=== PATIENT | male | born 1960 | race Caucasian/White ===

== ENCOUNTER 2023-07-11 09:45 | Outpatient (CLI) | payer BC, SELFPAY ==
--- NOTE | 2023-07-11 10:41 | ECG_ITS ---
Measurements Intervals [place] Rate: 53 P: FL: 0 QRS: -3 QRSD: 121 T: 39 QT: 406 QTc: 383 Interpretive Statements SINUS BRADYCARDIA WITH JUNCTIONAL COMPLEXES INTRAVENTRICULAR CONDUCTION DELAY BASELINE ARTIFACT- I, II, III, AVR, AVL, AVF, V1-V6 ABNORMAL ECG NO PREVIOUS ECG AVAILABLE FOR COMPARISON Electronically Signed On 07-11-2023 11:23:47 [employer] SUPER[employer] by Milo Gutiérrez D.O.
[2023-07-11 11:10] LABS: Basophils Absolute Auto 0.1 K/mm3 (0.0-0.1); Basophils Percent Auto 1.1 % (0.2-1.2); Eosinophils Absolute Auto 0.1 K/mm3 (0-0.3); Hematocrit 44.4 % (42.0-52.0); Hemoglobin 14.6 g/dL (14.0-18.0); Immature Granulocyte Absolute 0.06 K/mm3 (0.00-0.031); Immature Granulocyte Percent A 0.8 % (0-0.5); Lymphocytes Absolute Auto 1.98 K/mm3 (0.9-3.2); Mean Corpuscular HGB Conc 32.9 g/dl (32-36); Mean Corpuscular Volume 88.3 fl (80-100); Mean Platelet Volume 9.1 fl (7.4-10.4); Monocytes Absolute Auto 0.7 K/mm3 (0.1-0.6); Neutrophils Percent Auto 63.1 % (45.5-73.1); Platelet Count Result 342 k/mm3 (150-375); Red Blood Count 5.03 M/mm3 (4.6-6.20); Red Cell Distribution Width 14.3 % (11.5-14.5); White Blood Count 7.9 K/mm3 (4.5-10.0)
[2023-07-11 11:19] LABS: Urine Cotinine NEGATIVE
[2023-07-11 11:23] LABS: Albumin Level 4.7 g/dL (3.5-5.1); Estimated Glomerular Filt Rate > 60; Glucose 95 mg/dL (65-110); Hemoglobin A1C 5.2 % (<5.7)
== END 2023-07-11 09:46 | disposition home or self-care (01) ==
LOC: ANHSURGERY 09:52
PROVIDERS: PCP Internal Medicine; Visit Provider Orthopaedic Surgery
DX: M17.11 Unilateral primary osteoarthritis, right knee (principal); Z01.818 Encounter for other preprocedural examination
CPT/HCPCS: 80307; 82040; 82565; 82947; 83036; 85025; 86850; 86900; 86901; 87081; 93005

== ENCOUNTER 2023-07-24 00:55 | Day surgery (SDC) | payer BC, SELFPAY ==
--- NOTE | 2023-07-11 10:06 | PC.NURSE ---
PRE-OP INSTRUCTIONS, PLEASE READ CAREFULLY Report to the Outpatient Waiting Room, entrance under the green pavilion located off [facility], at time _0600_ on date _07/24/23_. Planned Procedure Time: _0730_. PACK A SMALL OVERNIGHT BAG AND LEAVE IN THE CAR ALONG WITH YOUR WALKER Time changes happen often and if your time is changed the preop area will call you the afternoon before. - You and your visitor will be asked to self-screen and do not enter if you have any COVID symptoms. - A mask is optional within the hospital at this time. -VISITING HOURS 8AM -8PM Patients may have clear liquids (water, carbonated beverages, clear teas, apple juice) until 3 hours prior to surgery with a maximum of 20 ounces. - No food from midnight until time of surgery Take the following medications with a SIP of water the morning of surgery: _LEVOTHYROXINE_ DO NOT STOP ANY OF YOUR OTHER PRESCRIPTION MEDICATIONS PRIOR TO SURGERY ?EXCEPT THE FOLLOWING Medications to discontinue _MELOXICAM PER DR. MARQUEZ'S INSTRUCTIONS, Date to take last dose - ASK @ MONDA[facility]'S APPT (07/15/23)_ Please no make-up, nail lao, hairspray, perfume, deodorant, or body powder the day of surgery. No jewelry (including any body piercings) or valuables the day of surgery, leave them at home. Please take a shower or bath the night before, or the morning of, surgery with an antibacterial soap. Wear comfortable, loose fitting clothing. - Jewelry must be removed prior to entering the operating room. Rings and piercings that are not removed may be cut off. - The hospital will not accept responsibility for valuables. - Please leave all valuables, including medications, at home the day of surgery. If you are going home after surgery, a licensed test driver must drive you home. - NO public transportation without another adult if you receive anesthesia. - We recommend that an adult stay with you for 24 hours following discharge. - We also recommend that you do not drive, make important decision, drink alcoholic beverages, or take any drugs that were not prescribed by your health care provider for at least 24 hours after your discharge time. Follow any additional instructions given to you from your surgeon. If you or anyone in your household have experienced Covid symptoms in the past week, please notify your surgeon or the nurse liaison at the phone number below for possible testing. Instructions given to _PATIENT_and asked if any additional questions and then verbalized understanding. Patient advised to call surgeon office or pre surgery nurse liaison [phone] if any additional questions.
[2023-07-11 10:23] VITALS: BP 152/90; PULSE 56; RESP 20; TEMP 36.8; O2SAT 99; BMI 26.3
--- NOTE | 2023-07-22 11:58 | PM.IMHP ---
H&P: HPI History of Present Illness Date/Time: 07/22/23 11:58 Chief Complaint: Right Knee Osteoarthritis Narrative: Patient presents knee pain right. He has had knee pain for years now and has had extensive conservative treatment. He has failed injections hyaluronic acid anti-inflammatory medication therapy etc.. He is to the point where he has a hard time getting around would like to consider knee replacement surgery. Review of Systems Review of Systems: All systems reviewed & are unremarkable except as noted in HPI and below Musculoskeletal: Musculoskeletal: Reports arthralgias and Reports joint swelling [facility] Past Medical History Medical History (Updated 06/05/23 @ 13:28 by Tawanda Camilo MD) GERD (gastroesophageal reflux disease) Hyperlipidemia Hypertension Thyroid disorder Family History Family History (Updated 06/05/23 @ 13:01 by Ivana Purcell CMA) Father Lung cancer Mother CHF (congestive heart failure) Social History Social History (Updated 06/05/23 @ 13:01 by Ivana Purcell CMA) Smoking status: Never smoker Second hand tobacco smoke exposure: No Additional smoking assessment comments: PT DENIES ALL FORMS OF TOBACCO USE Alcohol intake: current Alcohol use details: 2/MONTH Substance use: current Substance use type: marijuana Last use: 04/17 Lack of Transportation: No Lack of Food: Never True Current Housing: I Have Housing Concerned About Future Housing: No Difficulty Paying Gas/Electric Bills: No Difficulty Paying for Meds: No Currently Unemployed: No Education: Trade/Vocational Certificate Difficulty w/ Childcare or Family Care: No Living arrangements: with family Occupation/Education: occupation 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 Spiritual care concerns: No Meds Home Medications and Allergies Home Medications Medication Instructions Recorded Confirmed Type levothyroxine 112 mcg capsule 112 mcg PO DAILY 06/05/23 07/11/23 History lisinopril 10 mg tablet 10 mg PO DAILY 06/05/23 07/11/23 History meloxicam 15 mg tablet 15 mg PO DAILY 06/05/23 07/11/23 History omeprazole 40 mg capsule,delayed 40 mg PO DAILY 06/05/23 07/11/23 History release trazodone 50 mg tablet 50 mg PO QHS PRN Sleep 06/05/23 07/11/23 History betamethasone dipropionate 0.05 % See Rx Instructions .Route .COMPLEX 07/11/23 07/11/23 History topical cream pravastatin 40 mg tablet 40 mg DAILY 07/11/23 07/11/23 History Allergies Allergy/AdvReac Type Severity Reaction Status Date / Time No Known Allergies Allergy Verified 07/11/23 10:17 Exam Narrative: Examination of his knee demonstrates motion from 3 to 110? varus deformity grinding crepitus and pain with any manipulation. He walks with an antalgic gait. He has pain with any motion. Neurologically, wiggle his toes is grossly intact. Resp: Effort & Inspection: normal respiratory effort Cardio: Rate: regular rate Rhythm: regular rhythm Assessment and Plan Assessment and plan (1) Osteoarthritis of right knee: Code(s): M17.11 - Unilateral primary osteoarthritis, right knee Status: Acute Assessment and Plan: Patient presents with osteoarthritis of the right knee. He has motion of the knees from about 3 to 100? varus deformity is grinding crepitus and pain with any manipulation. He walks an antalgic gait. He has failed conservative treatment and would like to proceed with knee replacement surgery. I think that is reasonable based on his symptoms and that is the fact conservative treatment is not helping any longer. We discussed surgical options risks benefits limitations and alternatives in detail. Will proceed with total knee arthroplasty right per his request. [facility] [place], [place] H&P [facility] H&P [facility] H&P: [id number] Initial Admit Mod
--- NOTE | 2023-07-23 15:53 | WPDANESEPPF ---
Anes - Initial Pre Proc Eval Procedure: Operation Date: 07/24/23 07:30 Proposed Procedures p Right Total Knee Arthroplasty - Tawanda Camilo MD Date/Time: 07/23/23 15:53 Surgeon: Tawanda Camilo MD Pre Op Diagnosis: oa right knee Patient Data Age: 63 Gender: M Height: 1.77 m Weight: 82.7 kg Last Vital Signs Temp 36.8 C 07/11/23 10:23 Pulse 56 L 07/11/23 10:23 Resp 20 07/11/23 10:23 BP 152/90 H 07/11/23 10:23 Pulse Ox 99 07/11/23 10:23 O2 Del Method Room Air 07/11/23 10:23 Allergies Allergy/AdvReac Type Severity Reaction Status Date / Time No Known Allergies Allergy Verified 07/24/23 06:40 Home Medications Medication Instructions Recorded Confirmed Type levothyroxine 112 mcg capsule 112 mcg PO DAILY 06/05/23 07/24/23 History lisinopril 10 mg tablet 10 mg PO DAILY 06/05/23 07/24/23 History meloxicam 15 mg tablet 15 mg PO DAILY 06/05/23 07/24/23 History omeprazole 40 mg capsule,delayed 40 mg PO DAILY 06/05/23 07/24/23 History release trazodone 50 mg tablet 50 mg PO QHS PRN Sleep 06/05/23 07/24/23 History betamethasone dipropionate 0.05 % See Rx Instructions .Route .COMPLEX 07/11/23 07/11/23 History topical cream pravastatin 40 mg tablet 40 mg DAILY 07/11/23 07/24/23 History Patient hx anesthesia problems: none Family hx anesthesia problems: none Results Review: All pre-operative results and documents have been reviewed as part of the pre-operative evaluation. [facility] Past Medical History Medical History (Updated 07/23/23 @ 15:53 by Abhinav Figueroa DO) GERD (gastroesophageal reflux disease) Hyperlipidemia Hypertension ARTURO (obstructive sleep apnea) CPAP Thyroid disorder Family History Family History (Updated 06/05/23 @ 13:01 by Ivana Purcell CMA) Father Lung cancer Mother CHF (congestive heart failure) Social History Social History (Updated 06/05/23 @ 13:01 by Ivana Purcell CMA) Smoking status: Never smoker Second hand tobacco smoke exposure: No Additional smoking assessment comments: PT DENIES ALL FORMS OF TOBACCO USE Alcohol intake: current Alcohol use details: 2/MONTH Substance use: current Substance use type: marijuana Last use: 04/17 Lack of Transportation: No Lack of Food: Never True Current Housing: I Have Housing Concerned About Future Housing: No Difficulty Paying Gas/Electric Bills: No Difficulty Paying for Meds: No Currently Unemployed: No Education: Trade/Vocational Certificate Difficulty w/ Childcare or Family Care: No Living arrangements: with family Occupation/Education: occupation 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 Informed Consent: The patient's anesthetic plan and its attendant risks and benefits were discussed with the patient/family/POA. Questions were solicited and answers provided to the satisfaction of the patient/family/POA.
[2023-07-24] VITALS (13 sets, daily range): BP systolic 118–172; BP diastolic 70–107; PULSE 70–85; RESP 12–18; TEMP 36.1–36.8; O2SAT 94–100
--- NOTE | ~2023-07-24 | XR_ITS ---
EXAMINATION: [id number] DATE: 07/24/2023 09:46 INDICATION: Right knee arthroplasty. Postop. TECHNIQUE: 2 views of right knee were obtained. COMPARISON: None. FINDINGS: There is a total right knee arthroplasty with patellar resurfacing in near-anatomic alignme nt. No fracture. There is gas in the knee joint and soft tissues, consistent with recent surgery. Ant erior skin brandi are noted. IMPRESSION: 1. Total right knee arthroplasty in near-anatomic alignment. Reviewed, dictated and finalized at location A. INSTRUCTOR
[2023-07-24] MEDS: LACTATED RINGERS 1,000 ML 30 ML IV CONT ×2 (06:30→09:33)
[2023-07-24] MEDS: VANCOMYCIN 1,250 MG/NS 250 ML BAG 166.67 MG IVPB (06:34)
[2023-07-24] MEDS: ACETAMINOPHEN 500 MG TABLET 1000 MG PO (06:35)
[2023-07-24] MEDS: TRANEXAMIC ACID 1,000MG/ISO100 1,000 MG/100 ML BAG 200 MG IVPB (06:36)
--- NOTE | 2023-07-24 06:47 | WPDHPUPDATE1 ---
History and Physical Update Update Date/Time: 07/24/23 06:47 History and Physical has been reviewed, including an updated exam of the patient. There are NO changes in the patient's condition. Risks, benefits, and alternatives have been discussed and questions answered. Patient agrees to proceed with procedure.
--- NOTE | 2023-07-24 07:13 | WPDANESPNB ---
Anes - Peripheral Nerve Block Date/Time: 07/24/23 07:13 I have discussed with the patient/family/POA the placement of a peripheral nerve block for post-operative pain management, including associated risks, benefits, complications, and side effects. Alternative methods of post-operative analgesia were detailed. Questions were solicited and answers provided to the satisfaction of the patient/family/POA. Time-Out: A pre-procedural Time-Out was completed immediately before starting the procedure and confirmed: Patient Identification, Site, Procedure, Patient Position and the Availability of Requisite Equipment. Clinical Indications: Acute post-operative pain management requested by the operative surgeon. Nerve Block Insertion Note Anes-nerve block: adductor canal right Patient position: supine Skin prep: chlorhexidine Needle: 22 gauge, stimulating, insulated echogenic needle. Needle length: 80 mm Technique: ultrasound Injectate: bupivacaine 0.5% with epi 5 mcg/ml (30cc - no epi) Observations: tolerated well Complications: none Procedure start time:: 713 Procedure end time:: 717
[2023-07-24] MEDS: ceFAZolin 2 GM/D5W 50 ML 2 GM/50 ML BAG IVPB ×3 (07:25→22:13)
[2023-07-24] MEDS: GENTAMICIN BONE CEMENT REFOBACIN 1 EACH TOPICAL (08:02)
--- NOTE | 2023-07-24 09:06 | W.PM.PROC2 ---
Procedure Note - Detailed Date of Procedure 07/24/23 Pre-op Diagnosis Osteoarthritis right knee Post-op Diagnosis Same Procedure Performed RIGHT total knee arthroplasty Surgeon Tawanda Camilo MD Anesthesia General Indications Arthritis and Pain Description of Procedure The patient was brought to the operating room. General anesthetic was administered. Placed on the operating table and sterilely prepped and draped in usual manner. A longitudinal incision was made. Tourniquet inflated to 300 mmHg for a total of 64 minutes. Dissection carried down to the fascia. Medial parapatellar incision was made and the patella subluxated laterally. Patella cut from 28 to 18 mm and sized for a 37 mm button. The tibia cut perpendicular to the long axis and femur cut in 5 degrees of valgus, a 72.5 femur trialed. 75 tibia was felt to fit the best. The soft tissue balanced, hemostasis obtained. All [address], 75 tibia, 72.5 femur, 37 mm patella, and 10AS mm poly. Motion was 0-125 degrees with good stablility and flexion and extension. The wound was closed with #2 vicryl, 2-0 Vicryl and brandi. [employer] Estimated Blood Loss 200 Drains No Packing No Pathology None sent Complications No immediate complications Condition Stable Disposition PACU [facility] Billing Surgery - Charge Forward: Surgery Billing (TOTAL KNEE [id number])
[2023-07-24] MEDS: fentaNYL CITRATE INJ (*CRX) 100 MCG/2 ML VIAL 25 MCG IV PUSH ×2 (10:04→10:10)
--- NOTE | 2023-07-24 10:50 | PC.NURSE ---
This patient, Jerry Chan, was received from OR on 07/24/23 at 1050. Patient/family oriented to unit policies and routines. Report received from Gerber JOSHUA.
[2023-07-24] MEDS: SODIUM CHLORIDE 0.9% IV 1,000 ML 125 ML IV CONT (12:31)
--- NOTE | 2023-07-24 14:35 | PM.IMCN ---
Assessment and Plan Assessment and plan (1) S/P total knee arthroplasty: Qualifiers: Laterality: right Qualified Code(s): Z96.651 - Presence of right artificial knee joint Code(s): Z96.659 - Presence of unspecified artificial knee joint Status: Acute (2) GERD (gastroesophageal reflux disease): Qualifiers: Esophagitis presence: esophagitis presence not specified Qualified Code(s): K21.9 - Gastro-esophageal reflux disease without esophagitis Code(s): K21.9 - Gastro-esophageal reflux disease without esophagitis Status: Acute (3) Hyperlipidemia: Qualifiers: Hyperlipidemia type: unspecified Qualified Code(s): E78.5 - Hyperlipidemia, unspecified Code(s): E78.5 - Hyperlipidemia, unspecified Status: Acute (4) Hypertension: Qualifiers: Hypertension type: primary hypertension Qualified Code(s): I10 - Essential (primary) hypertension Code(s): I10 - Essential (primary) hypertension Status: Acute (5) Hypothyroidism: Qualifiers: Hypothyroidism type: unspecified Qualified Code(s): E03.9 - Hypothyroidism, unspecified Code(s): E03.9 - Hypothyroidism, unspecified Status: Acute Plan 1. s/p total knee, R ortho to manage, see below for general plan use IS neurovasc checks - see order for intervals SCDs resume diet: regular pain management zofran PRN for nausea monitor labs in AM - CBC and BMP resume meloxicam 2. GERD continue home omeprazole zofran prn 3. HLD continue home pravastatin 4. HTN continue lisinopril monitor 5. Hypothyroidism continue levothyroxine no symptoms concerning for alteration in TSH/T3/T4 Home Meds/Chronic Conditions - insomnia: resume home trazodone Diet: regular GI Prophylaxis: DVT Prophylaxis: SCDs, hold on pharm due to recent surgery Lines: pIV Code Status: Full Code HPI Date of Consult Consult date: 07/24/23 Requesting Physician: Tawanda Camilo MD Primary Care Provider: Ezequiel Celestin, Consult Narrative Reason for consult: Medical Managment Narrative: Jerry Chan is a 63 year old male who presented here for a right total knee arthroplasty. Patient reports that he failed daily meloxicam, steroid injections, and PT. Pain has been present in his right knee for the past 1-2 years, has been progressively worsening. Recently has locked up where he was intially able to walk on his RLE, however most recent episode was too painful to ambulate on. Opted to proceed with surgical management due to active lifestyle and active job, right total knee arthroplasty performed on 07/24 by Ton STEVENS. No immediate postop complications or complaints endorsed by patient. He reports well-controlled hypertension, no recent med changes or current SANCHEZ/vision changes/nausea. Follows with PCP for his hypothyroidism, last check within the last 6 months, and no alterations in medications. No current nausea/vomiting. A/Ox4. Review of Systems Review of Systems: All systems reviewed & are unremarkable except as noted in HPI and below PMFSH Past Medical History Medical History GERD (gastroesophageal reflux disease) Hyperlipidemia Hypertension Hypothyroidism ARTURO (obstructive sleep apnea) CPAP Surgical History Surgical History History of total knee arthroplasty R Knee - 07/24/23 Family History Family History Father Lung cancer Mother CHF (congestive heart failure) Social History Social History Smoking status: Never smoker Second hand tobacco smoke exposure: No Additional smoking assessment comments: PT DENIES ALL FORMS OF TOBACCO USE Alcohol intake: current Alcohol use details: 2/MONTH Substance use:
[2023-07-24] MEDS: HYDROcodone/acetaminophen (*CRX) 5-325 MG TABLET 2 TAB PO ×2 (16:04→22:13)
[2023-07-24] MEDS: RIVAROXABAN 10 MG TABLET PO (17:23)
[2023-07-24] MEDS: SENNA/DOCUSATE SODIUM TABLET 2 TAB PO (17:23)
--- NOTE | 2023-07-24 19:30 | PC.NURSE ---
On 07/24/23, the FOUNDER AND CHIEF TECHNICAL OFFICER, Brigette Rucker, provided care and completed [facility] documentation on this patient. I have reviewed the FOUNDER AND CHIEF TECHNICAL OFFICER's documentation and agree with the findings.
[2023-07-25 06:00] VITALS: BP 126/66; PULSE 67; RESP 18; TEMP 36.6; O2SAT 97
[2023-07-25 06:10] LABS: Basophils Absolute Auto 0.1 K/mm3 (0.0-0.1); Basophils Percent Auto 0.6 % (0.2-1.2); Eosinophils Absolute Auto 0.1 K/mm3 (0-0.3); Eosinophils Percent Auto 0.6 % (0-4.4); Hematocrit 35.3 % (42.0-52.0); Hemoglobin 11.6 g/dL (14.0-18.0); Immature Granulocyte Absolute 0.03 K/mm3 (0.00-0.031); Immature Granulocyte Percent A 0.4 % (0-0.5); Lymphocytes Absolute Auto 1.13 K/mm3 (0.9-3.2); Lymphocytes Percent Auto 13.7 % (18.3-44.2); Mean Corpuscular HGB Conc 32.9 g/dl (32-36); Mean Corpuscular Hemoglobin 29.7 pg (26-34); Mean Corpuscular Volume 90.3 fl (80-100); Mean Platelet Volume 9.2 fl (7.4-10.4); Monocytes Absolute Auto 1.3 K/mm3 (0.1-0.6); Monocytes Percent Auto 15.5 % (2.6-8.5); Neutrophils Absolute Auto 5.7 K/mm3 (1.3-6.7); Neutrophils Percent Auto 69.2 % (45.5-73.1); Platelet Count Result 227 k/mm3 (150-375); Red Blood Count 3.91 M/mm3 (4.6-6.20); Red Cell Distribution Width 14.6 % (11.5-14.5); White Blood Count 8.2 K/mm3 (4.5-10.0)
[2023-07-25 06:14] LABS: Anion Gap 8 mmol/L (8-16); Blood Urea Nitrogen 24 mg/dL (9-20); Calcium 8.5 mg/dL (8.4-10.2); Carbon Dioxide 22 mmol/L (22-30); Chloride 104 mmol/L (98-107); Estimated CRCL calculation 56 ml/min; Estimated Glomerular Filt Rate > 60; Glucose 116 mg/dL (65-110); Potassium 3.8 mmol/L (3.4-5.0); Sodium 134 mmol/L (137-145)
[2023-07-25] MEDS: HYDROcodone/acetaminophen (*CRX) 5-325 MG TABLET 2 TAB PO (06:24)
[2023-07-25] MEDS: LEVOTHYROXINE SODIUM 112 MCG TABLET PO (06:25)
[2023-07-25] MEDS: ceFAZolin 2 GM/D5W 50 ML 2 GM/50 ML BAG IVPB (06:26)
[2023-07-25] MEDS: MELOXICAM 7.5 MG TABLET 15 MG PO (08:20)
[2023-07-25] MEDS: PRAVASTATIN SODIUM 20 MG TABLET 40 MG PO (08:21)
[2023-07-25] MEDS: polyethylene glycoL 3350 17 GM POWD.PACK PO (08:21)
[2023-07-25] MEDS: PANTOPRAZOLE 40 MG TABLET PO (08:21)
[2023-07-25] MEDS: SENNA/DOCUSATE SODIUM TABLET 2 TAB PO (08:21)
[2023-07-25] MEDS: lisinopriL 10 MG TABLET PO (08:21)
--- NOTE | 2023-07-25 11:50 | PM.PNORT ---
Progress Note: A&P Assessment and Plan (1) S/P total knee arthroplasty: Qualifiers: Laterality: right Qualified Code(s): Z96.651 - Presence of right artificial knee joint Code(s): Z96.659 - Presence of unspecified artificial knee joint Status: Acute Assessment and Plan: Patient is status post total knee arthroplasty pain is resolving is doing well. Lawrence and Xarelto loss was couple of days of antibiotics. I will see him back in 2 weeks for follow-up for sutures out. If he has any changes or problems he will call changes dressing before he goes. Subjective Subjective Date/Time Seen: 07/25/23 11:50 Principal diagnosis: Right Total Knee Interval history: Arthroplasty right. Pain is resolving doing well walking. Exam Narrative: On exam he has got motion he has the 5? he is stable incision is clean neurologically he is intact. He is up walking a walker. Objective Data Vital Signs Vital Signs: Vital Signs - 24 hr 07/24/23 12:45 07/24/23 13:43 07/24/23 16:12 Temperature 97.9 F Pulse Rate 85 Respiratory Rate 16 Blood Pressure 157/82 H Pulse Oximetry 94 97 Oxygen Delivery Room Air Room Air 07/24/23 15:10 07/24/23 22:00 07/25/23 06:00 Temperature 97.0 F L 97.8 F Pulse Rate 79 67 Respiratory Rate 18 18 Blood Pressure 118/73 126/66 Pulse Oximetry 98 97 Oxygen Delivery Room Air Intake/Output Intake/Output: Intake & Output 07/22/23 07/23/23 07/24/23 07/25/23 23:59 23:59 23:59 23:59 Intake Total 1979 690 Output Total 400 Balance 1979 290 Meds/Results Medications: Active Medications Generic Name Dose Route Start Last Admin Trade Name Freq PRN Reason Stop Dose Admin Hydrocodone Bitart/Acetaminophen 2 tab 07/24/23 10:44 07/25/23 06:24 Hydrocodone/Acetaminophen (*Crx) 5-325 Mg Tablet PO 2 tab Q6H PRN Administration Pain Rated 7-10 Hydrocodone Bitart/Acetaminophen 1 tab 07/24/23 10:44 Hydrocodone/Acetaminophen (*Crx) 5-325 Mg Tablet PO Q4H PRN Pain Rated 4-6 Cyclobenzaprine HCl 10 mg 07/24/23 10:44 Cyclobenzaprine Hcl 10 Mg Tablet PO Q8H PRN Spasms Diphenhydramine HCl 25 mg 07/24/23 10:44 Diphenhydramine Hcl Inj 50 Mg/Ml Vial IV PUSH Q6H PRN Itching Levothyroxine Sodium 112 mcg 07/25/23 06:30 07/25/23 06:25 Levothyroxine Sodium 112 Mcg Tablet PO 112 mcg DAILY@0630 MARK Administration Lisinopril 10 mg 07/25/23 09:00 07/25/23 08:21 Lisinopril 10 Mg Tablet PO 10 mg DAILY MARK Administration Meloxicam 15 mg 07/25/23 09:00 07/25/23 08:20 Meloxicam 7.5 Mg Tablet PO 15 mg QAM MARK Administration Naloxone HCl 0.1 mg 07/24/23 10:44 Naloxone Hcl 0.4 Mg/Ml Vial IV PUSH Q2M PRN Opiate Reversal Pantoprazole Sodium 40 mg 07/25/23 09:00 07/25/23 08:21 Pantoprazole 40 Mg Tablet PO 40 mg QAM MARK Administration Polyethylene Glycol 17 gm 07/25/23 09:00 07/25/23 08:21 Polyethylene Glycol 3350 17 Gm Powd.Pack PO 17 gm QAM MARK Administration Pravastatin Sodium 40 mg 07/25/23 09:00 07/25/23 08:21 Pravastatin Sodium 20 Mg Tablet PO 40 mg DAILY MARK Administration Rivaroxaban 10 mg 07/24/23 17:00 07/24/23 17:23 Rivaroxaban 10 Mg Tablet PO 08/04/23 17:01 10 mg DAILY@17 MARK Administration Senna/Docusate Sodium 2 tab 07/24/23 17:00 07/25/23 08:21 Senna/Docusate Sodium Tablet PO 2 tab BID MARK Administration Tramadol HCl 50 mg 07/24/23 10:44 Tramadol Hcl (*Crx) 50 Mg Tablet PO Q4H PRN Pain Rated 1-3 Trazodone HCl 50 mg 07/24/23 15:57 Trazodone Hcl 50 Mg Tablet PO QHS PRN Sleep Radiology Results: ITS Impressions Knee X-Ray 07/24/23 09:50 IMPRESSION: 1. Total right knee arthroplasty in near-anatomic alignment. Labs Labs: Laboratory Results - last 24 hr 07/25/23 05:46 WBC 8.2 RBC 3.91 L Hgb 11.6 L D Hct 35.3 L MCV 90.
--- NOTE | 2023-07-25 11:57 | PM.DS ---
DS: Admitting Diagnosis Discharge Date 07/25/2023 Admitting Diagnosis Osteoarthritis right knee DS: Summary Hospital Course Reason for hospitalization: Patient underwent total knee arthroplasty for osteoarthritis right knee. Hospital Course: Patient underwent total knee arthroplasty for osteoarthritis right knee. He is doing well at this time. Pain is under control his incision looks good he is walking he can be dismissed home. Dismissal medications [place] Xarelto doxycycline Time Spent with Patient Time attestation: Total time spent providing and/or coordinating discharge services: Exam Narrative: We could neurologically he is intact he is walking with antalgic gait with a walker. DS: Data Data Completed and Pending Labs on day of discharge: Labs from last 24 hours 07/25/23 05:46 WBC 8.2 RBC 3.91 L Hgb 11.6 L D Hct 35.3 L MCV 90.3 MCH 29.7 MCHC 32.9 RDW 14.6 H Plt Count 227 MPV 9.2 Immature Gran % (Auto) 0.4 Neut % (Auto) 69.2 Lymph % (Auto) 13.7 L Hall % (Auto) 15.5 H Eos % (Auto) 0.6 Baso % (Auto) 0.6 Lymph # (Auto) 1.13 Hall # (Auto) 1.3 H Eos # (Auto) 0.1 Baso # (Auto) 0.1 Abs Immat Gran (auto) 0.03 Absolute Neuts (auto) 5.7 Absolute Nucleated RBC 0.0 Nucleated RBC % 0.0 Sodium 134 L Potassium 3.8 Chloride 104 Carbon Dioxide 22 Anion Gap 8 BUN 24 H Creatinine 1.20 Estim Creat Clear Calc 56 Estimated GFR > 60 Glucose 116 H Calcium 8.5 Discharge Plan Discharge Patient Disposition: Home, Self-Care Discharge Instructions: Tawanda Camilo [address] [address] POST-OPERATIVE DISCHARGE INSTRUCTIONS TOTAL KNEE ARTHROPLASTY 1. When resting, do not rest in the chair.When resting, lie on your back, with back flat on the couch or bed, with leg elevated above heart to minimize swelling. You may put a pillow under your head. . Significant swelling could indicate a blood clot and if this occurs call the office (or go to the ER) to have a venous ultrasound. Therefore, do not rest in a chair. 2. At least five times a day spend several minutes stretching your knee into flexion while sitting in the chair and also stretching your knee out straight The abilities to bend your knee fulling and straighten your knee fully are two most important knee functions to focus on during your recovery. 3. It is ok to sit in chair to eat, use the toilet and receive a guest and to do your stretching exercises, but, sitting in a chair will cause your leg to swell. Therefore, avoid additional time sitting in the chair. and don't rest in the chair. 4. Wound Care: Nursing will give you an additional Mepilex dressing at the time of discharge. Patient to remove the dressing and apply a new Mepilex dressing at home 7 days after surgery and leave the dressing on until seen in office. 5. May shower with a Mepilex dressing in place.The water will run off the dressing. 6. Unless you are told otherwise, you may put full weight on your operated leg. Use a walker for balance and practice walking as normally as you can, ideally for a few minutes every hour while you are awake. 7. I would advise against putting ice packs on your knee incision. Ice constricts blood flow which can impar healing of the knee incision. IMPORTANT: Remember not to sit in the chair for more than 30 minutes at a time. As a rule, during the first 14 days after surgery, only sit in the chair to work on the chair knee bending stretch exercise, for meals or for use of the restroom. Sitting in the chair promotes significant swelling in the knee and leg which will make your knee stiff and more painful and which simulates having a blood clot in the veins of the leg. If this type of significant diffuse swelling occurs, an ultrasound at the hospital will be necessary to rule out a blood clot. Be up walking around with the walker for a few minutes every hour while awake
[2023-07-25] MEDS: HYDROcodone/acetaminophen (*CRX) 5-325 MG TABLET 1 TAB PO (12:42)
--- NOTE | 2023-07-25 13:48 | PCCCNOTE ---
On 07/25/23, the student, [Jennifer Hill], provided care and completed [facility] documentation on this patient. I have reviewed the student's documentation and agree with the findings.
--- NOTE | 2023-07-25 14:08 | PM.IMPN ---
Progress Note: A&P Assessment and Plan (1) S/P total knee arthroplasty: Qualifiers: Laterality: right Qualified Code(s): Z96.651 - Presence of right artificial knee joint Code(s): Z96.659 - Presence of unspecified artificial knee joint Status: Acute Plan repeat H&H in 1 week for post op anemia, it is mild, possibly dilutional as well. otherwise medically ready for discharge pt to take Xarelto for DVT prophylaxis. confirmed with Dr. Camilo it has been ordered by his office already. Subjective Date/time seen: 07/25/23 14:08 Interval history: NAOE. pt has no complaints. successfully participating with PT Review of Systems Review of Systems: All systems reviewed & are unremarkable except as noted in HPI and below Exam Const: General: comfortable and no acute distress Eyes: Pupils: Equal, round and reactive pupils present Neck: Neck: supple Resp: Effort & Inspection: normal respiratory effort Auscultation: clear to auscultation bilaterally Cardio: Rate: regular rate Rhythm: regular rhythm Heart sounds: no gallops, no murmurs and no rubs GI: GI Palp: Yes Soft to palpation and No Tenderness to palpation present (GI) Extrem: General: edema (1+ edema of RLE, improved from day prior) Objective Data Vital Signs Vital Signs: Vital Signs - 24 hr 07/24/23 16:12 07/24/23 15:10 07/24/23 22:00 Temperature 97.0 F L Pulse Rate 79 Respiratory Rate 18 Blood Pressure 118/73 Pulse Oximetry 97 98 Oxygen Delivery Room Air Room Air 07/25/23 06:00 07/25/23 08:20 Temperature 97.8 F Pulse Rate 67 Respiratory Rate 18 Blood Pressure 126/66 Pulse Oximetry 97 Oxygen Delivery Room Air Intake/Output Intake/Output: Intake & Output 07/22/23 07/23/23 07/24/23 07/25/23 23:59 23:59 23:59 23:59 Intake Total 1979 690 Output Total 400 Balance 1979 290 Meds/Results Medications: Active Medications Generic Name Dose Route Start Last Admin Trade Name Freq PRN Reason Stop Dose Admin Hydrocodone Bitart/Acetaminophen 2 tab 07/24/23 10:44 07/25/23 06:24 Hydrocodone/Acetaminophen (*Crx) 5-325 Mg Tablet PO 2 tab Q6H PRN Administration Pain Rated 7-10 Hydrocodone Bitart/Acetaminophen 1 tab 07/24/23 10:44 07/25/23 12:42 Hydrocodone/Acetaminophen (*Crx) 5-325 Mg Tablet PO 1 tab Q4H PRN Administration Pain Rated 4-6 Cyclobenzaprine HCl 10 mg 07/24/23 10:44 Cyclobenzaprine Hcl 10 Mg Tablet PO Q8H PRN Spasms Diphenhydramine HCl 25 mg 07/24/23 10:44 Diphenhydramine Hcl Inj 50 Mg/Ml Vial IV PUSH Q6H PRN Itching Levothyroxine Sodium 112 mcg 07/25/23 06:30 07/25/23 06:25 Levothyroxine Sodium 112 Mcg Tablet PO 112 mcg DAILY@0630 MARK Administration Lisinopril 10 mg 07/25/23 09:00 07/25/23 08:21 Lisinopril 10 Mg Tablet PO 10 mg DAILY MARK Administration Meloxicam 15 mg 07/25/23 09:00 07/25/23 08:20 Meloxicam 7.5 Mg Tablet PO 15 mg QAM MARK Administration Naloxone HCl 0.1 mg 07/24/23 10:44 Naloxone Hcl 0.4 Mg/Ml Vial IV PUSH Q2M PRN Opiate Reversal Pantoprazole Sodium 40 mg 07/25/23 09:00 07/25/23 08:21 Pantoprazole 40 Mg Tablet PO 40 mg QAM MARK Administration Polyethylene Glycol 17 gm 07/25/23 09:00 07/25/23 08:21 Polyethylene Glycol 3350 17 Gm Powd.Pack PO 17 gm QAM MARK Administration Pravastatin Sodium 40 mg 07/25/23 09:00 07/25/23 08:21 Pravastatin Sodium 20 Mg Tablet PO 40 mg DAILY MARK Administration Rivaroxaban 10 mg 07/24/23 17:00 07/24/23 17:23 Rivaroxaban 10 Mg Tablet PO 08/04/23 17:01 10 mg DAILY@17 MARK Administration Senna/Docusate Sodium 2 tab 07/24/23 17:00 07/25/23 08:21 Senna/Docusate Sodium Tablet PO 2 tab BID MARK Administration Tramadol HCl 50 mg 07/24/23 10:44 Tramadol Hcl (*Crx) 50 Mg Tablet PO Q4H PRN Pain Rated 1-3 Trazodone HCl 50 mg 07/24/23 15:57 Traz
== END 2023-07-25 13:50 | disposition home or self-care (01) ==
LOC: ANHSURGERY 05:52 → ANH3MEDSUR 11:22
PROVIDERS: PCP Internal Medicine; Visit Provider Orthopaedic Surgery
PROC: (CPT 27447; principal; 2023-07-24 07:30)
DX: M17.11 Unilateral primary osteoarthritis, right knee (principal); G89.18 Other acute postprocedural pain; I10 Essential (primary) hypertension; E78.5 Hyperlipidemia, unspecified; E03.9 Hypothyroidism, unspecified; K21.9 Gastro-esophageal reflux disease without esophagitis; F12.90 Cannabis use, unspecified, uncomplicated
CPT/HCPCS: 27447; 64447; 36415; 73560; 80048; 85025; 97110; 97116; 97161; 97165; 97530; 97535; A9270; C1713; C1776; J0171; J0690; J1100; J1885; J2250; J2270; J2405; J2704; J2795; J3010; J3370; J7030; J7120

== ENCOUNTER 2024-02-06 09:48 | Outpatient (CLI) | payer BC, SELFPAY ==
[2024-02-06 10:56] LABS: Basophils Absolute Auto 0.1 K/mm3 (0.0-0.1); Basophils Percent Auto 1.3 % (0.2-1.2); Eosinophils Absolute Auto 0.1 K/mm3 (0-0.3); Hematocrit 44.4 % (42.0-52.0); Hemoglobin 14.7 g/dL (14.0-18.0); Immature Granulocyte Absolute 0.04 K/mm3 (0.00-0.031); Immature Granulocyte Percent A 0.5 % (0-0.5); Lymphocytes Absolute Auto 1.67 K/mm3 (0.9-3.2); Mean Corpuscular HGB Conc 33.1 g/dl (32-36); Mean Corpuscular Hemoglobin 29.4 pg (26-34); Mean Corpuscular Volume 88.8 fl (80-100); Monocytes Absolute Auto 0.7 K/mm3 (0.1-0.6); Monocytes Percent Auto 8.4 % (2.6-8.5); Neutrophils Absolute Auto 5.4 K/mm3 (1.3-6.7); Neutrophils Percent Auto 67.8 % (45.5-73.1); Platelet Count Result 301 k/mm3 (150-375); Red Cell Distribution Width 14.1 % (11.5-14.5)
[2024-02-06 11:05] LABS: Albumin Level 4.8 g/dL (3.5-5.1); Estimated Glomerular Filt Rate 51; Glucose 98 mg/dL (65-110)
[2024-02-06 11:20] LABS: Urine Cotinine NEGATIVE
== END 2024-02-06 09:49 | disposition home or self-care (01) ==
LOC: ANHSURGERY 09:52
PROVIDERS: PCP Internal Medicine; Visit Provider Orthopaedic Surgery
DX: Z01.818 Encounter for other preprocedural examination (principal); M17.12 Unilateral primary osteoarthritis, left knee
CPT/HCPCS: 80307; 82040; 82565; 82947; 83036; 85025; 86850; 86900; 86901

== ENCOUNTER 2024-02-17 01:30 | Day surgery (SDC) | payer BC, SELFPAY ==
--- NOTE | 2024-02-06 10:05 | PC.NURSE ---
Report to the Outpatient Waiting Room, entrance under the green pavilion located off [facility], at time _6:00 AM on date _02/17/24 . Planned Procedure Time: _7:30 AM . Time changes happen often and if your time is changed the preop area will call you the afternoon before. - You and your visitor will be asked to self-screen and do not enter if you have any COVID symptoms. - A mask is optional within the hospital at this time. Patients may have clear liquids (water, carbonated beverages, clear teas, apple juice) until 3 hours prior to surgery( 4:30 AM) with a maximum of 20 ounces. - No food from midnight until time of surgery - Infants may have breast milk until 4 hours before surgery, infant formula 6 hours prior to surgery. - Children will be allowed to drink immediately following surgery. If applicable, please bring a bottle or sippy cup to assist with drinking. Juice, water, soda, and popsicles are readily available. For infants on formula, please bring formula the day of surgery. Pacifiers are allowed. Take the following medications with a SIP of water the morning of surgery: __LEVOTHYROXINE, DO NOT STOP ANY OF YOUR OTHER PRESCRIPTION MEDICATIONS PRIOR TO SURGERY ?EXCEPT THE FOLLOWING Medications to discontinue per physician _MELOXICAM PER DR MARQUEZ-PT TO CALL Please no make-up, nail mauritanian, hairspray, perfume, deodorant, or body powder the day of surgery. No jewelry (including any body piercings) or valuables the day of surgery, leave them at home. Please take a shower or bath the night before, or the morning of, surgery with an antibacterial soap. Wear comfortable, loose fitting clothing. Children are encouraged to wear pajamas. - Jewelry must be removed prior to entering the operating room. Rings and piercings that are not removed may be cut off. - The hospital will not accept responsibility for valuables. - Please leave all valuables, including medications, at home the day of surgery. If you are going home after surgery, a licensed oil transport driver must drive you home. - NO public transportation without another adult if you receive anesthesia. - We recommend that an adult stay with you for 24 hours following discharge. - We also recommend that you do not drive, make important decision, drink alcoholic beverages, or take any drugs that were not prescribed by your health care provider for at least 24 hours after your discharge irene Follow any additional instructions given to you from your surgeon. If you or anyone in your household have experienced Covid symptoms in the past week, please notify your surgeon or the nurse liaison at the phone number below for possible testing. VERBAL AND WRITTEN instructions given to __PATIENT and asked if any additional questions and then verbalized understanding. Patient advised to call surgeon office or pre surgery nurse liaison [phone] if any additional questions.
[2024-02-06 10:21] VITALS: BP 148/92; PULSE 55; RESP 18; TEMP 37.2; O2SAT 99; BMI 27.8
--- NOTE | 2024-02-14 07:29 | PM.IMHP ---
H&P: HPI History of Present Illness Date/Time: 02/14/24 07:29 Chief Complaint: Painful LEFT knee with severe Osteoarthritis, unresponsive to conservative treatment. Review of Systems Review of Systems: All systems reviewed & are unremarkable except as noted in HPI and below [facility] Past Medical History Medical History GERD (gastroesophageal reflux disease) Hyperlipidemia Hypertension Hypothyroidism ARTURO (obstructive sleep apnea) CPAP Surgical History Surgical History History of total knee arthroplasty R Knee - 07/24/23 Family History Family History Father Lung cancer Mother CHF (congestive heart failure) Social History Social History (Updated 12/12/23 @ 11:44 by Jannet Bangura CMA) Smoking status: Never smoker Second hand tobacco smoke exposure: No Additional smoking assessment comments: DENIES ANY FORM OF TOBACCO USE Alcohol intake: current Alcohol use details: 2 DRINKS PER MONTH Substance use: former Last use: 04/17 Do You Feel Safe in your Home?: Yes Lack of Transportation: No Lack of Food: Never True Current Housing: I Have Housing Concerned About Future Housing: No Difficulty Paying Gas/Electric Bills: No Difficulty Paying for Meds: No Currently Unemployed: No Education: High School Diploma/GED Difficulty w/ Childcare or Family Care: No Living arrangements: with family Occupation/Education: occupation 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 Gender identity (if verbalized by the patient): Male Spiritual care concerns: No Meds Home Medications and Allergies Home Medications Medication Instructions Recorded Confirmed Type levothyroxine 112 mcg capsule 112 mcg PO DAILY 06/05/23 02/06/24 History lisinopril 10 mg tablet 10 mg PO DAILY 06/05/23 02/06/24 History meloxicam 15 mg tablet 15 mg PO DAILY 06/05/23 02/06/24 History omeprazole 40 mg capsule,delayed 40 mg PO DAILY 06/05/23 02/06/24 History release trazodone 50 mg tablet 50 mg PO QHS PRN Sleep 06/05/23 02/06/24 History pravastatin 40 mg tablet 40 mg DAILY 07/11/23 02/06/24 History betamethasone dipropionate 0.05 % 1 applic topical PRN PRN ECZEMA 02/06/24 02/06/24 History topical cream rivaroxaban 10 mg tablet (Xarelto) 10 mg PO DAILY PE prophylaxis s/p 02/14/24 Rx knee replacement #10 tabs Allergies Allergy/AdvReac Type Severity Reaction Status Date / Time No Known Allergies Allergy Verified 02/06/24 09:56 Exam Narrative: ROM 5-110. Varus deformity. NVI Eyes: General: appearance normal, both eyes and all related structures Neck: Neck: supple Resp: Effort & Inspection: normal respiratory effort Cardio: Rate: regular rate Rhythm: regular rhythm Assessment and Plan Assessment and plan (1) Osteoarthritis of left knee: Code(s): M17.12 - Unilateral primary osteoarthritis, left knee Status: Acute Assessment and Plan: Patient has osteoarthritis Left knee. He has failed conservative treatment and would like to proceed with Total Knee Arthroplasty. I discussed risks, benefits, limitations and alternatives in detail. He understands and agrees. We will proceed.
[2024-02-17] VITALS (13 sets, daily range): BP systolic 143–178; BP diastolic 85–107; PULSE 55–111; RESP 15–21; TEMP 36.2–37; O2SAT 96–100
--- NOTE | ~2024-02-17 | XR_ITS ---
EXAMINATION: [id number] DATE: 02/17/2024 09:56 INDICATION: Postoperative evaluation following left total knee arthroplasty. TECHNIQUE: Anteroposterior and lateral views of the left knee were obtained. COMPARISON: 12/12/2023 FINDINGS: Left total knee arthroplasty with patellar resurfacing appears well seated and in near anatomic align ment. No fractures identified. Anterior skin brandi and expected postoperative subcutaneous and int ra-articular gas. IMPRESSION: 1. Left total knee arthroplasty, negative for postoperative purposes. Reviewed, dictated and finalized at location B.
[2024-02-17] MEDS: TRANEXAMIC ACID 1,000MG/ISO100 1,000 MG/100 ML BAG 200 MG IVPB (06:40)
[2024-02-17] MEDS: ACETAMINOPHEN 500 MG TABLET 1000 MG PO (06:40)
[2024-02-17] MEDS: VANCOMYCIN 1,250 MG/NS 250 ML BAG 166.67 MG IVPB (06:40)
[2024-02-17] MEDS: LACTATED RINGERS 1,000 ML 30 ML IV CONT ×2 (06:40→10:00)
--- NOTE | 2024-02-17 06:43 | WPDHPUPDATE1 ---
History and Physical Update Update Date/Time: 02/17/24 06:43 History and Physical has been reviewed, including an updated exam of the patient. There are NO changes in the patient's condition. Risks, benefits, and alternatives have been discussed and questions answered. Patient agrees to proceed with procedure.
--- NOTE | 2024-02-17 07:02 | WPDANESEPPF ---
Anes - Initial Pre Proc Eval Procedure: Operation Date: 02/17/24 07:30 Proposed Procedures p Left Total Knee Arthroplasty - Tawanda Camilo MD Date/Time: 02/17/24 07:02 Surgeon: Tawanda Camilo MD Pre Op Diagnosis: O A Lt Knee Patient Data Age: 64 Gender: M Height: 1.78 m Weight: 85.7 kg Last Vital Signs Temp 97.1 F L 02/17/24 06:21 Pulse 55 L 02/17/24 06:21 Resp 18 02/17/24 06:21 BP 178/85 H 02/17/24 06:21 Pulse Ox 100 02/17/24 06:21 O2 Del Method Room Air 02/17/24 06:21 Allergies Allergy/AdvReac Type Severity Reaction Status Date / Time No Known Allergies Allergy Verified 02/17/24 05:49 Home Medications Medication Instructions Recorded Confirmed Type levothyroxine 112 mcg capsule 112 mcg PO DAILY 06/05/23 02/17/24 History lisinopril 10 mg tablet 10 mg PO DAILY 06/05/23 02/17/24 History meloxicam 15 mg tablet 15 mg PO DAILY 06/05/23 02/17/24 History omeprazole 40 mg capsule,delayed 40 mg PO DAILY 06/05/23 02/17/24 History release trazodone 50 mg tablet 50 mg PO QHS PRN Sleep 06/05/23 02/17/24 History pravastatin 40 mg tablet 40 mg DAILY 07/11/23 02/17/24 History betamethasone dipropionate 0.05 % 1 applic topical PRN PRN ECZEMA 02/06/24 02/17/24 History topical cream rivaroxaban 10 mg tablet (Xarelto) 10 mg PO DAILY PE prophylaxis s/p 02/14/24 Rx knee replacement #10 tabs Patient hx anesthesia problems: none Family hx anesthesia problems: none Results Review: All pre-operative results and documents have been reviewed as part of the pre-operative evaluation. [facility] Past Medical History Medical History GERD (gastroesophageal reflux disease) Hyperlipidemia Hypertension Hypothyroidism ARTUOR (obstructive sleep apnea) CPAP Surgical History Surgical History History of total knee arthroplasty R Knee - 07/24/23 Family History Family History Father Lung cancer Mother CHF (congestive heart failure) Social History Social History Smoking status: Never smoker Second hand tobacco smoke exposure: No Additional smoking assessment comments: DENIES ANY FORM OF TOBACCO USE Alcohol intake: current Alcohol use details: 2 DRINKS PER MONTH Substance use: former Last use: 04/17 Do You Feel Safe in your Home?: Yes Lack of Transportation: No Lack of Food: Never True Current Housing: I Have Housing Concerned About Future Housing: No Difficulty Paying Gas/Electric Bills: No Difficulty Paying for Meds: No Currently Unemployed: No Education: High School Diploma/GED Difficulty w/ Childcare or Family Care: No Living arrangements: with family Occupation/Education: occupation 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 ) Neurological: alert and oriented Last oral intake: >/= 8 hours ASA classification: III Emergent: no Anesthetic plan: proceed Anesthesia type and monitoring: general LMA and standard monitoring Results Review: All pre-operative results and documents have been reviewed as part of the pre-operative evaluation. HTN, hyperlipidemia, ARTURO on CPAP (mod per pt). Informed Consent: The patient's anesthetic plan and its attendant risks and benefits were discussed with the patient/family/POA. Questions were solicited and answers provided to the satisfaction of the patient/family/POA.
--- NOTE | 2024-02-17 07:27 | WPDANESPNB ---
Anes - Peripheral Nerve Block Date/Time: 02/17/24 07:27 I have discussed with the patient/family/POA the placement of a peripheral nerve block for post-operative pain management, including associated risks, benefits, complications, and side effects. Alternative methods of post-operative analgesia were detailed. Questions were solicited and answers provided to the satisfaction of the patient/family/POA. Time-Out: A pre-procedural Time-Out was completed immediately before starting the procedure and confirmed: Patient Identification, Site, Procedure, Patient Position and the Availability of Requisite Equipment. Clinical Indications: Acute post-operative pain management requested by the operative surgeon. Nerve Block Insertion Note Anes-nerve block: adductor canal left Patient position: supine Skin prep: chlorhexidine Needle: 22 gauge, stimulating, insulated echogenic needle. Needle length: 80 mm Technique: ultrasound Injectate: other (Bupiv 0.5%, 15 mls. ) Observations: tolerated well Complications: none Procedure start time:: Procedure end time::
[2024-02-17] MEDS: ceFAZolin 2 GM/D5W 50 ML 2 GM/50 ML BAG IVPB ×2 (08:38→16:20)
[2024-02-17] MEDS: SODIUM CHLORIDE 0.9% IV 37.7 ML, MORPHINE SULFATE INJ (*CRX) 2 MG, ROPivacaine HCL 1% 2... INFILTRATE (08:39)
[2024-02-17] MEDS: ceFAZolin SODIUM 1 GM VIAL 2 GM IV PUSH (08:46)
[2024-02-17] MEDS: TRANEXAMIC ACID 1,000 MG/10 ML AMPUL 1000 MG IV PUSH (09:04)
--- NOTE | 2024-02-17 09:05 | P.OP_ITS ---
Procedure Note - Detailed Date of Procedure 02/17/24 Pre-op Diagnosis Osteoarthritis LEFT Knee Post-op Diagnosis Same Procedure Performed LEFT Total Knee Replacement Surgeon Tawanda Camilo MD Anesthesia General Indications Pain and Arthritis Description of Procedure The patient was brought to operating room #8. A general anesthetic was administered. Placed on the operating table and sterilely prepped and draped in usual manner. A longitudinal incision was made. Tourniquet inflated to 300 mmHg for a total of 51 minutes. Dissection was carried down to the fascia. Medial parapatellar incision was made and the patella subluxated laterally. Patella cut from 28 to 18 mm and sized for a 37 mm button. The tibia was cut perpendicular to the long axis and femur cut in 5 degrees of valgus. A 72.5 femur trialed. 75 tibia was felt to fit the best. The soft tissues balanced, hemostasis obtained. All [address], 75 tibia, 72.5 femur, 37 mm patella, and 10AS mm poly. Motion was 0-125 degrees with good stability in both flexion and extension. The wound was closed with #2 Vicryl, 2- 0 Vicryl and brandi. [employer] Estimated Blood Loss 200 Drains No Packing No Pathology None sent Complications No immediate complications Condition Stable Disposition PACU [facility] Billing Surgery - Charge Forward: Surgery Billing ([id number] Total Knee)
[2024-02-17] MEDS: ONDANSETRON INJ 4 MG/2 ML VIAL IV PUSH ×2 (10:00→11:21)
[2024-02-17] MEDS: SODIUM CHLORIDE 0.9% IV 1,000 ML 125 ML IV CONT (11:10)
--- NOTE | 2024-02-17 11:28 | ADMGEN ---
This patient, Jerry Chan, was admitted to [facility] Surg Room 314-02. Patient/family oriented to hospital policies and general routines including ID bracelet, bed and alarms, visiting hours, pain management, procedures, bathroom and other care routines, personal items, smoking policy, room service/diet, and visiting hours. Information on how to activate the Rapid Response Team has been discussed. Patient/Family are encouraged to report perceived risks to care and to ask questions if they do not understand what they are told or what they should do.
[2024-02-17] MEDS: PROMETHAZINE HCL 25 MG/ML AMPUL 12.5 MG IV PUSH (13:56)
[2024-02-17] MEDS: HYDROcodone/acetaminophen (*CRX) 5-325 MG TABLET 1 TAB PO (14:27)
--- NOTE | 2024-02-17 14:54 | WPDCN ---
Assessment and Plan Assessment and plan (1) Osteoarthritis of left knee: Code(s): M17.12 - Unilateral primary osteoarthritis, left knee Status: Acute Assessment and Plan: Postoperative day 0 status post left total knee arthroplasty. Wound care, pain control, and DVT prophylaxis deferred to Dr. Camilo. (2) Postoperative nausea and vomiting: Code(s): R11.2 - Nausea with vomiting, unspecified; Z98.890 - Other specified postprocedural states Status: Acute Assessment and Plan: Ongoing nausea despite ondansetron. Phenergan x1 helped tremendously. He is now tolerating diet. (3) Hypertension: Qualifiers: Hypertension type: primary hypertension Qualified Code(s): I10 - Essential (primary) hypertension Code(s): I10 - Essential (primary) hypertension Status: Acute Assessment and Plan: Blood pressures have been running in the 150s postoperatively, likely due to pain and ongoing nausea. Continue lisinopril 10 mg daily and monitor closely. (4) Hyperlipidemia: Qualifiers: Hyperlipidemia type: unspecified Qualified Code(s): E78.5 - Hyperlipidemia, unspecified Code(s): E78.5 - Hyperlipidemia, unspecified Status: Acute Assessment and Plan: Continue statin and check LFTs. (5) Gastroesophageal reflux disease: Code(s): K21.9 - Gastro-esophageal reflux disease without esophagitis Status: Acute Assessment and Plan: Continue omeprazole 40 mg daily. (6) Obstructive sleep apnea on CPAP: Code(s): G47.33 - Obstructive sleep apnea (adult) (pediatric) Status: Acute Assessment and Plan: CPAP will be provided for the patient to use while hospitalized. (7) Hypothyroidism: Qualifiers: Hypothyroidism type: unspecified Qualified Code(s): E03.9 - Hypothyroidism, unspecified Code(s): E03.9 - Hypothyroidism, unspecified Status: Acute Assessment and Plan: Continue levothyroxine and check TSH. Plan Thank you for allowing us to participate in this patient's care. Please do not hesitate to contact us with any questions. HPI Data of Consult Date/Time: 02/17/24 15:00 Requesting Physician: Tawanda Camilo MD Consult Narrative Reason for consult: Medical management. Narrative: This is a very pleasant 64-year-old male with osteoarthritis, hypertension, hyperlipidemia, hypothyroidism, obstructive sleep apnea, and gastroesophageal reflux disease whom the hospitalist service has been consulted for help managing his medical conditions postoperatively. He presented today for elective left total knee arthroplasty due to ongoing pain despite conservative outpatient treatment. His surgery was performed under general anesthesia with no immediate complications documented an estimated blood loss of 200 mL. He has had issues with postoperative nausea and vomiting but that has improved with the addition of Phenergan. His pain is well controlled. He has been up to the chair, walking around the room, and up to the bathroom without issue. He denies fever, chills, sweats, chest pain, and shortness of breath. He also denies paresthesias, skin color, and temperature changes distal to the surgical site. On discharge she will be at home with his who will be helping take care of him. He did well with his previous knee replacement. No personal or family history of venous thromboembolism. Regarding his chronic medical conditions, he believes they are well controlled on home medication. Review of Systems Review of Systems: 12 systems were reviewed and are negative except for as per HPI. [facility] Past Medical History Medical History (Updated 02/17/24 @ 21:55 by Belgica He PA-C) Gastroesophageal reflux disease Hyperlipidemia Hypertension Hypothyroidism Obstructive sleep apnea on CPAP Surgical History Surgical History (Updated 02/17/24 @ 15:13 by Belgica Gentile
[2024-02-17] MEDS: CELECOXIB 200 MG CAPSULE PO (16:19)
[2024-02-17] MEDS: RIVAROXABAN 10 MG TABLET PO (16:19)
[2024-02-17] MEDS: SENNA/DOCUSATE SODIUM TABLET 2 TAB PO (16:19)
[2024-02-17] MEDS: HYDROcodone/acetaminophen (*CRX) 7.5-325 MG TABLET 1 TAB PO (20:43)
[2024-02-18 00:29] VITALS: BP 163/80; PULSE 60; RESP 16; TEMP 36.9; O2SAT 97
[2024-02-18] MEDS: ceFAZolin 2 GM/D5W 50 ML 2 GM/50 ML BAG IVPB ×2 (00:52→08:18)
[2024-02-18 04:36] VITALS: BP 136/81; PULSE 64; RESP 16; TEMP 36.9; O2SAT 98
[2024-02-18] MEDS: LEVOTHYROXINE SODIUM 112 MCG TABLET PO (05:33)
[2024-02-18] MEDS: HYDROcodone/acetaminophen (*CRX) 7.5-325 MG TABLET 1 TAB PO (05:34)
[2024-02-18 05:42] LABS: Basophils Percent Auto 0.6 % (0.2-1.2); Eosinophils Percent Auto 0.1 % (0-4.4); Hematocrit 37.8 % (42.0-52.0); Hemoglobin 12.4 g/dL (14.0-18.0); Immature Granulocyte Absolute 0.03 K/mm3 (0.00-0.031); Immature Granulocyte Percent A 0.4 % (0-0.5); Lymphocytes Absolute Auto 0.82 K/mm3 (0.9-3.2); Mean Corpuscular HGB Conc 32.8 g/dl (32-36); Mean Corpuscular Hemoglobin 29.5 pg (26-34); Mean Platelet Volume 8.8 fl (7.4-10.4); Monocytes Absolute Auto 0.9 K/mm3 (0.1-0.6); Monocytes Percent Auto 12.8 % (2.6-8.5); Neutrophils Absolute Auto 5.1 K/mm3 (1.3-6.7); Neutrophils Percent Auto 74.1 % (45.5-73.1); Platelet Count Result 231 k/mm3 (150-375); Red Cell Distribution Width 14.3 % (11.5-14.5); White Blood Count 6.8 K/mm3 (4.5-10.0)
[2024-02-18 05:53] LABS: Alanine Aminotransferase 14 U/L (6-50); Albumin Level 3.7 g/dL (3.5-5.1); Alkaline Phosphatase 97 U/L (38-126); Anion Gap 7 mmol/L (4-12); Aspartate Amino Transferase 24 U/L (17-59); Bilirubin,Total 1.9 mg/dL (0.2-1.3); Blood Urea Nitrogen 23 mg/dL (9-20); Calcium 8.8 mg/dL (8.4-10.2); Carbon Dioxide 24 mmol/L (22-30); Chloride 104 mmol/L (98-107); Estimated CRCL calculation 52 ml/min; Estimated Glomerular Filt Rate 55; Glucose 115 mg/dL (65-110); Magnesium 1.7 mg/dL (1.6-2.3); Potassium 4.1 mmol/L (3.4-5.0); Sodium 135 mmol/L (137-145)
[2024-02-18 06:25] LABS: Thyroid Stimulating Hormone Reflex 0.584 uIU/mL (0.465-4.68)
--- NOTE | 2024-02-18 06:51 | PM.PNORT ---
Progress Note: A&P Assessment and Plan (1) Osteoarthritis of left knee: Code(s): M17.12 - Unilateral primary osteoarthritis, left knee Status: Acute Assessment and Plan: Patient underwent total knee arthroplasty left. Following a typical course of this time. Will ambulate today if he does well can dismiss. (2) History of knee replacement procedure of left knee: Code(s): Z96.652 - Presence of left artificial knee joint Status: Acute Subjective Subjective Date/Time Seen: 02/18/24 06:52 Post Op day: 1 Principal diagnosis: Left total knee arthroplasty for osteoarthritis. Review of Systems Review of Systems: All systems reviewed & are unremarkable except as noted in HPI and below Exam Narrative: On exam patient is neurologically intact. Has pain with motion of his knee. Dressing is intact. Objective Data Vital Signs Vital Signs: Vital Signs - 24 hr 02/17/24 09:40 02/17/24 09:55 02/17/24 10:10 Temperature 98.6 F Pulse Rate 103 H 92 111 H Respiratory Rate 20 15 21 H Blood Pressure 161/91 H 165/92 H 166/92 H Pulse Oximetry 100 100 98 Oxygen Delivery Simple Face Mask Simple Face Mask Room Air Oxygen Flow Rate 5 5 02/17/24 10:25 02/17/24 10:40 02/17/24 11:15 Temperature 97.7 F Pulse Rate 81 82 85 Respiratory Rate 18 16 16 Blood Pressure 158/91 H 173/98 H 169/94 H Pulse Oximetry 98 98 97 Oxygen Delivery Room Air Room Air Oxygen Flow Rate 02/17/24 11:30 02/17/24 11:36 02/17/24 13:00 Temperature 97.7 F 97.7 F 97.7 F Pulse Rate 81 80 82 Respiratory Rate 16 16 16 Blood Pressure 150/101 H 146/107 H 157/92 H Pulse Oximetry 96 97 97 Oxygen Delivery Oxygen Flow Rate 02/17/24 13:25 02/17/24 17:00 02/17/24 20:36 Temperature 97.6 F 98.4 F Pulse Rate 80 61 Respiratory Rate 16 18 Blood Pressure 148/90 H 143/95 H Pulse Oximetry 96 99 Oxygen Delivery Room Air Oxygen Flow Rate 02/17/24 20:40 02/18/24 00:29 02/18/24 04:36 Temperature 98.4 F 98.4 F Pulse Rate 60 64 Respiratory Rate 16 16 Blood Pressure 163/80 H 136/81 Pulse Oximetry 97 98 Oxygen Delivery Room Air Oxygen Flow Rate 02/17/24 22:20 Temperature Pulse Rate 63 Respiratory Rate Blood Pressure Pulse Oximetry 98 Oxygen Delivery Oxygen Flow Rate Intake/Output Intake/Output: Intake & Output 02/15/24 02/16/24 02/17/24 02/18/24 23:59 23:59 23:59 23:59 Intake Total 1790 250 Output Total 650 Balance 1140 250 Meds/Results Medications: Active Medications Generic Name Dose Route Start Last Admin Trade Name Freq PRN Reason Stop Dose Admin Acetaminophen 650 mg 02/17/24 15:17 Acetaminophen 325 Mg Tablet PO Q6H PRN Mild Pain (1-3) or Fever Hydrocodone Bitart/Acetaminophen 1 tab 02/17/24 10:51 02/17/24 14:27 Hydrocodone/Acetaminophen (*Crx) 5-325 Mg Tablet PO 1 tab Q4H PRN Administration Pain Rated 4-6 Hydrocodone Bitart/Acetaminophen 1 tab 02/17/24 10:51 02/18/24 05:34 Hydrocodone/Acetaminophen (*Crx) 7.5-325 Mg Tablet PO 1 tab Q4H PRN Administration Pain Rated 7-10 Celecoxib 200 mg 02/17/24 17:00 02/17/24 16:19 Celecoxib 200 Mg Capsule PO 200 mg BIDWM MARK Administration Diphenhydramine HCl 25 mg 02/17/24 10:51 Diphenhydramine Hcl Inj 50 Mg/Ml Vial IV PUSH Q6H PRN Itching Hydromorphone HCl 1 mg 02/17/24 10:51 Hydromorphone Hcl Inj (*Crx) 1 Mg/Ml Syr IV PUSH Q2H PRN Breakthrough Pain Rated 7-10 or NPO Hydromorphone HCl 0.5 mg 02/17/24 10:51 Hydromorphone Hcl Inj (*Crx) 1 Mg/Ml Syr IV PUSH Q2H PRN Breakthrough Pain Rated 4-6 or NPO Cefazolin Sodium 2 gm in 50 mls @ 100 mls/hr 02/17/24 16:00 02/18/24 01:20 Ancef 2 Gm/D5w 50 Ml IVPB 02/18/24 08:29 Infused Q8H MARK Infusion Ibuprofen 800 mg in 200 mls @ 400 mls/hr 02/17/24 10:51 Caldolor 800 Mg/200 Ml IVPB Q6H PRN Breakthrough Pain Rated 1-3 or NPO Levothy
--- NOTE | 2024-02-18 06:53 | PM.DS ---
DS: Admitting Diagnosis Discharge Date 02/18/24 Admitting Diagnosis Osteoarthritis left knee DS: Discharge Diagnosis Discharge Diagnosis (1) History of knee replacement procedure of left knee: Code(s): Z96.652 - Presence of left artificial knee joint Status: Acute Assessment and Plan: Patient underwent total knee arthroplasty for osteoarthritis of the left knee. He has done well status post surgery. Will ambulate discharge today. (2) Osteoarthritis of left knee: Code(s): M17.12 - Unilateral primary osteoarthritis, left knee Status: Acute DS: Summary Hospital Course Hospital Course: Patient underwent total knee arthroplasty on the left. He has severe osteoarthritis unresponsive to conservative treatment. He has had previous total knee on the right for osteoarthritis as well. He has done well status post total arthroplasty left. Will dismiss home at this point. Follow up 10 to 14 days for sutures out. Time Spent with Patient Time attestation: Total time spent providing and/or coordinating discharge services: DS: Data Data Completed and Pending Labs on day of discharge: Labs from last 24 hours 02/18/24 05:25 WBC 6.8 RBC 4.20 L Hgb 12.4 L Hct 37.8 L MCV 90.0 MCH 29.5 MCHC 32.8 RDW 14.3 Plt Count 231 MPV 8.8 Immature Gran % (Auto) 0.4 Neut % (Auto) 74.1 H Lymph % (Auto) 12.0 L [place] % (Auto) 12.8 H Eos % (Auto) 0.1 Baso % (Auto) 0.6 Lymph # (Auto) 0.82 L [place] # (Auto) 0.9 H Eos # (Auto) 0.0 Baso # (Auto) 0.0 Abs Immat Gran (auto) 0.03 Absolute Neuts (auto) 5.1 Absolute Nucleated RBC 0.000 Nucleated RBC % 0.0 Sodium 135 L Potassium 4.1 Chloride 104 Carbon Dioxide 24 Anion Gap 7 BUN 23 H Creatinine 1.30 Estim Creat Clear Calc 52 Estimated GFR 55 L Glucose 115 H Calcium 8.8 Magnesium 1.7 Total Bilirubin 1.9 H Direct Bilirubin 0.0 AST 24 ALT 14 Alkaline Phosphatase 97 Total Protein 6.0 L Albumin 3.7 TSH (Reflex) 0.584 Discharge Plan Discharge Patient Disposition: Home, Self-Care Discharge Instructions: Dr. Tawanda Camilo M.D [address] [address] POST-OPERATIVE DISCHARGE INSTRUCTIONS TOTAL KNEE ARTHROPLASTY 1. When resting, do not rest in the chair.When resting, lie on your back, with back flat on the couch or bed, with leg elevated above heart to minimize swelling. You may put a pillow under your head. . Significant swelling could indicate a blood clot and if this occurs call the office (or go to the ER) to have a venous ultrasound. Therefore, do not rest in a chair. 2. At least five times a day spend several minutes stretching your knee into flexion while sitting in the chair and also stretching your knee out straight The abilities to bend your knee fulling and straighten your knee fully are two most important knee functions to focus on during your recovery. 3. It is ok to sit in chair to eat, use the toilet and receive a guest and to do your stretching exercises, but, sitting in a chair will cause your leg to swell. Therefore, avoid additional time sitting in the chair. and don't rest in the chair. 4. Wound Care: Nursing will give you an additional Mepilex dressing at the time of discharge. Patient to remove the dressing and apply a new Mepilex dressing at home 7 days after surgery and leave the dressing on until seen in office. 5. May shower with a Mepilex dressing in place.The water will run off the dressing. 6. Unless you are told otherwise, you may put full weight on your operated leg. Use a walker for balance and practice walking as normally as you can, ideally for a few minutes every hour while you are awake. 7. I would advise against putting ice packs on your knee incision. Ice constricts blood flow which can impar healing of the knee incision. IMPORTANT: Remember not to sit in the chair for more than 30 minutes at a time. As a rule, during the f
[2024-02-18] MEDS: CELECOXIB 200 MG CAPSULE PO (08:20)
[2024-02-18] MEDS: SENNA/DOCUSATE SODIUM TABLET 2 TAB PO (08:20)
[2024-02-18] MEDS: PANTOPRAZOLE 40 MG TABLET PO (08:20)
[2024-02-18] MEDS: polyethylene glycoL 3350 17 GM POWD.PACK PO (08:20)
[2024-02-18] MEDS: lisinopriL 10 MG TABLET PO (08:20)
[2024-02-18] MEDS: PRAVASTATIN SODIUM 20 MG TABLET 40 MG PO (08:20)
[2024-02-18 08:36] VITALS: BP 118/62; PULSE 72; RESP 16; TEMP 36.6; O2SAT 97
--- NOTE | 2024-02-18 14:22 | PC.NURSE ---
Patient resting during morning assessment. Patient is very calm and cooperative. Dressing changed to silver Mepilex and an extra one sent home with patient. Discharge teaching done. IV removed intact. Patient able to get into wc and into their car without difficulty. Patient discharged home with spouse via their personal automobile at approximately 1120.
== END 2024-02-18 11:20 | disposition home or self-care (01) ==
LOC: ANHSURGERY 06:05 → ANH3MEDSUR 11:16
PROVIDERS: Physician Assistant; PCP Internal Medicine; Visit Provider Orthopaedic Surgery
PROC: (CPT 27447; principal; 2024-02-17 07:30)
DX: M17.12 Unilateral primary osteoarthritis, left knee (principal); R11.2 Nausea with vomiting, unspecified; G89.18 Other acute postprocedural pain; K21.9 Gastro-esophageal reflux disease without esophagitis; E78.5 Hyperlipidemia, unspecified; I10 Essential (primary) hypertension; E03.9 Hypothyroidism, unspecified; G47.33 Obstructive sleep apnea (adult) (pediatric); Z99.89 Dependence on other enabling machines and devices
CPT/HCPCS: 27447; 64447; 36415; 73560; 80048; 80076; 83735; 84443; 85025; 97110; 97116; 97161; 97165; 97530; 97535; A9270; C1713; C1776; J0171; J0690; J1170; J1885; J2250; J2270; J2405; J2550; J2704; J2765; J2795; J3010; J3370; J7030; J7120